=== PATIENT | male | born 1970 | race Caucasian/White ===

== ENCOUNTER 2020-05-05 12:13 | Emergency (ER) | payer OTHER ==
[~2020-05-05 12:13] MED LIST: AMARYL 2MG TABLE2 MG PO; BENADRYL 25MG C25 MG PO; BUDESONIDE0.5 MG/2 M NEB; COMBIVENT RESPIM4 GM INH; COREG6.25 MG PO; COZAAR100 MG PO; DEPO-TESTOS200 MG/ML IM; GLUCOPHAGE1000 MG PO; LEXAPRO10 MG PO; NORVASC10 MG PO; NOVOLIN 70100 UNIT/2 SQ; PEPCID20 MG PO; PREDNISONE10 MG PO; PREVACID30 MG PO; PROZAC40 MG PO; VITAMIN D31250 MCG PO
[2020-05-05 14:54] LABS: HEMOGLOBIN 15.4 gm/dl (14.0-17.5); RED BLOOD COUNT 4.56 M/UL (4.20-5.50); WHITE BLOOD COUNT 5.6 K/UL (4.5-11.0)
[2020-05-05 15:20] LABS: BUN/CREATININE RATIO 18 (0-10)
[2020-05-05] MEDS ORDERED: KEFLEX CAP 250250 MG PO (15:57)
[2020-05-05] MEDS ORDERED: IBUPROFEN600 MG PO (15:57)
== END 2020-05-05 17:15 | disposition home or self-care (01) ==
LOC: ER1 12:13
PROVIDERS: Internal Medicine
DX: L03.116 Cellulitis of left lower limb (principal); E11.9 Type 2 diabetes mellitus without complications; E66.9 Obesity, unspecified; I10 Essential (primary) hypertension; Z88.2 Allergy status to sulfonamides; Z79.4 Long term (current) use of insulin
CPT/HCPCS: 80053; 85025; 93971; 99284; J0690

== ENCOUNTER → 2020-05-10 | Outpatient (CLI) | payer OTHER ==
[~2020-05-10] MED LIST changes: +CARVEDILOL12.5 MG PO; +CEFTRIAXONE2 GM IV; +GABAPENTIN300 MG PO; +HYDROCODON-ACE1 EAC4 PO; +IBUPROFEN600 MG PO; +KEFLEX CAP 250250 MG PO; +NUVIGIL250 MG PO
== END ==
LOC: KOH-I 11:00
DX: B94.8 Sequelae of other specified infectious and parasitic diseases (principal); K76.0 Fatty (change of) liver, not elsewhere classified
CPT/HCPCS: 71250

== ENCOUNTER 2020-05-19 12:11 | Inpatient (IN) | payer OTHER ==
[~2020-05-19] VITALS: Ht 177.8 cm; Wt 158.3 kg
[~2020-05-19 12:11] MED LIST changes: -CARVEDILOL12.5 MG PO; -CEFTRIAXONE2 GM IV; -GABAPENTIN300 MG PO; -HYDROCODON-ACE1 EAC4 PO; -NUVIGIL250 MG PO
[2020-05-19 13:17] LABS: HEMOGLOBIN 14.6 gm/dl (14.0-17.5); RED BLOOD COUNT 4.32 M/UL (4.20-5.50); WHITE BLOOD COUNT 5.5 K/UL (4.5-11.0)
[2020-05-19 13:27] LABS: BUN/CREATININE RATIO 17 (0-10)
[2020-05-19] MEDS ORDERED: NUVIGIL250 MG PO (19:50)
[2020-05-22 05:08] LABS: HEMOGLOBIN 13.9 gm/dl (14.0-17.5); RED BLOOD COUNT 4.3 M/UL (4.20-5.50); WHITE BLOOD COUNT 5.4 K/UL (4.5-11.0)
[2020-05-22 05:18] LABS: BUN/CREATININE RATIO 19 (0-10)
[2020-05-23 05:50] LABS: HEMOGLOBIN 13.5 gm/dl (14.0-17.5); RED BLOOD COUNT 4.16 M/UL (4.20-5.50); WHITE BLOOD COUNT 4.9 K/UL (4.5-11.0)
[2020-05-23 06:02] LABS: BUN/CREATININE RATIO 17 (0-10)
[2020-05-23 11:17] LABS: ADENOVIRUS F 40/41 Not Detected (Negative); ASTROVIRUS Not Detected (Negative); CAMPYLOBACTER Not Detected (Negative); CLOSTRIDIUM DIFFICILE TOX A/B Not Detected (Negative); CRYPTOSPORIDIUM Not Detected (Negative); E.COLI 0157 Not Detected (Negative); ENTAMOEBA HISTOLYTICA Not Detected (Negative); ENTEROAGGREGATIVE E.COLI (EAEC Not Detected (Negative); ENTEROPATHOGENIC E.COLI (EPEC) Not Detected (Negative); ENTEROTOXIGENIC E.COLI (ETEC) Not Detected (Negative); GIARDIA LAMBLIA Not Detected (Negative); NOROVIRUS GI/GII Not Detected (Negative); PLESIOMONAS SHIGELLOIDES Not Detected (Negative); ROTOVIRUS A Not Detected (Negative); SALMONELLA Not Detected (Negative); SAPOVIRUS Not Detected (Negative); SHIG/ENTEROINVAS.ECOLI (EIEC) Not Detected (Negative); SHIGA-LIK TOX.PRO.E.COLI (STEC Not Detected (Negative); VIBRIO CHOLERAE Not Detected (Negative); YERSINIA ENTEROCOLITICA Not Detected (Negative)
[2020-05-23 13:27] LABS: VIBRIO DETECTED (Negative)
[2020-05-24 03:12] LABS: HEMOGLOBIN 14.2 gm/dl (14.0-17.5); RED BLOOD COUNT 4.3 M/UL (4.20-5.50); WHITE BLOOD COUNT 5.6 K/UL (4.5-11.0)
[2020-05-24 03:40] LABS: BUN/CREATININE RATIO 22 (0-10)
--- NOTE | 2020-05-24 15:45 | NUR ---
20G X 10CM MIDLINE PLACED IN THE LEFT BRACHIAL VEIN UTILIZING ULTRASOUND. ASPIRATES AND FLUSHES WELL. NO COMPLICATIONS.
[2020-05-24] MEDS ORDERED: CEFTRIAXONE2 GM IV (17:02)
[2020-05-24] MEDS ORDERED: CARVEDILOL12.5 MG PO (17:07)
[2020-05-24] MEDS ORDERED: HYDROCODON-ACE1 EAC4 PO (17:07)
[2020-05-24] MEDS ORDERED: GABAPENTIN300 MG PO (17:07)
--- NOTE | 2020-05-24 18:30 | NUR ---
REFUSED FLU SHOT/ OUT PT ORDER WAS FAXED TO THEM FOR IV ANTIBIOTIC ORDER , PT HAD MIDLINE PLACED IN RIGHT UPPER ARM FOR THER PER INFUSION NOTED
== END 2020-05-24 18:17 | disposition home or self-care (01) | DRG 603 ==
LOC: ER1 12:11 → M/S 14:58 → CDU 14:58 → M/S 17:33
PROVIDERS: Emergency Medicine; Family Medicine; Internal Medicine; ADMIT Internal Medicine
DX: L03.116 Cellulitis of left lower limb (principal); Z68.43 Body mass index [BMI] 50.0-59.9, adult; E66.01 Morbid (severe) obesity due to excess calories; G47.33 Obstructive sleep apnea (adult) (pediatric); I10 Essential (primary) hypertension; F41.9 Anxiety disorder, unspecified; M79.89 Other specified soft tissue disorders; E11.42 Type 2 diabetes mellitus with diabetic polyneuropathy; F32.9 Major depressive disorder, single episode, unspecified; I87.8 Other specified disorders of veins; E11.65 Type 2 diabetes mellitus with hyperglycemia; Z86.16 Personal history of COVID-19; Z79.4 Long term (current) use of insulin; Z87.891 Personal history of nicotine dependence; Z98.890 Other specified postprocedural states; Z88.2 Allergy status to sulfonamides
CPT/HCPCS: 36415; 80048; 80053; 80202; 82962; 85025; 85027; 86140; 87507; 93925; 94640; 94664; 94760; 96374; 96375; 96376; 99284; C1751; G0378; J0696; J1650; J2543; J3370; J7070; U0002

== ENCOUNTER → 2020-05-25 | Outpatient (CLI) | payer OTHER ==
[~2020-05-25] VITALS: Ht 177.8 cm; Wt 165.6 kg
[~2020-05-25] MED LIST changes: +CARVEDILOL12.5 MG PO; +CEFTRIAXONE2 GM IV; +GABAPENTIN300 MG PO; +HYDROCODON-ACE1 EAC4 PO; +NUVIGIL250 MG PO
== END ==
LOC: OPSV 08:59
DX: L03.116 Cellulitis of left lower limb (principal)
CPT/HCPCS: 96365; J0696

== ENCOUNTER → 2020-05-26 | Outpatient (CLI) | payer OTHER ==
[~2020-05-26] VITALS: Ht 177.8 cm; Wt 165.6 kg
== END ==
LOC: OPSV 08:00
DX: L03.116 Cellulitis of left lower limb (principal)
CPT/HCPCS: 96365; J0696

== ENCOUNTER → 2020-05-27 | Outpatient (CLI) | payer OTHER ==
[~2020-05-27] VITALS: Ht 177.8 cm; Wt 165.6 kg
== END ==
LOC: OPSV 08:00
DX: L03.116 Cellulitis of left lower limb (principal)
CPT/HCPCS: 96365; J0696

== ENCOUNTER → 2020-05-28 | Outpatient (CLI) | payer OTHER ==
[~2020-05-28] VITALS: Ht 177.8 cm; Wt 165.6 kg
== END ==
LOC: OPSV 08:00
DX: L03.116 Cellulitis of left lower limb (principal)
CPT/HCPCS: 96365; J0696

== ENCOUNTER → 2020-05-29 | Outpatient (CLI) | payer OTHER ==
[~2020-05-29] VITALS: Ht 177.8 cm; Wt 165.6 kg
== END ==
LOC: OPSV 08:00
DX: L03.116 Cellulitis of left lower limb (principal)
CPT/HCPCS: 96365; J0696

== ENCOUNTER → 2020-05-31 | Outpatient (CLI) | payer OTHER ==
[~2020-05-31] VITALS: Ht 177.8 cm; Wt 165.6 kg
== END ==
LOC: OPSV 08:00
DX: L03.116 Cellulitis of left lower limb (principal)
CPT/HCPCS: 96365; C1751; J0696

== ENCOUNTER → 2020-06-01 | Outpatient (CLI) | payer OTHER ==
[~2020-06-01] VITALS: Ht 177.8 cm; Wt 165.6 kg
== END ==
LOC: OPSV 08:00
DX: L03.116 Cellulitis of left lower limb (principal)
CPT/HCPCS: 96365; J0696

== ENCOUNTER → 2020-06-02 | Outpatient (CLI) | payer OTHER ==
[~2020-06-02] VITALS: Ht 177.8 cm; Wt 165.6 kg
== END ==
LOC: OPSV 08:00
DX: L03.116 Cellulitis of left lower limb (principal)
CPT/HCPCS: 96365; J0696; P9047

== ENCOUNTER → 2020-06-03 | Outpatient (CLI) | payer OTHER ==
[~2020-06-03] VITALS: Ht 177.8 cm; Wt 165.6 kg
[2020-06-03 10:02] LABS: HEMOGLOBIN 14.3 gm/dl (14.0-17.5); RED BLOOD COUNT 4.31 M/UL (4.20-5.50); WHITE BLOOD COUNT 6.5 K/UL (4.5-11.0)
[2020-06-03 10:31] LABS: BUN/CREATININE RATIO 25 (0-10)
[2020-06-04 08:14] LABS: ANTISTREPTOLYSIN O AB 87.3 IU/mL (0.0-200.0); RHEUMATOID ARTHRITIS FACTOR <10.0 IU/mL (0.0-13.9); VITAMIN D, 25-HYDROXY 28.4 ng/mL (30.0-100.0)
[2020-06-04 11:14] LABS: HBSAG SCREEN Negative (Negative); HEP A AB, IGM Negative (Negative); HEP B CORE AB, IGM Negative (Negative); HEP C VIRUS AB <0.1 (0.0-0.9)
== END ==
LOC: OPSV 08:00
PROVIDERS: Nurse Practitioner Family
DX: Z00.00 Encounter for general adult medical examination without abnormal findings (principal); E11.9 Type 2 diabetes mellitus without complications; M12.9 Arthropathy, unspecified; R53.83 Other fatigue; E78.5 Hyperlipidemia, unspecified; I10 Essential (primary) hypertension; D50.9 Iron deficiency anemia, unspecified; Z51.81 Encounter for therapeutic drug level monitoring; Z79.899 Other long term (current) drug therapy; M25.50 Pain in unspecified joint
CPT/HCPCS: 36415; 80053; 80061; 80074; 82150; 82607; 82728; 82746; 83036; 83540; 83550; 83690; 84443; 84550; 85027; 85652; 86038; 86060; 86140; 86431; 96365; J0696

== ENCOUNTER → 2020-06-04 | Outpatient (CLI) | payer OTHER ==
[~2020-06-04] VITALS: Ht 177.8 cm; Wt 165.6 kg
== END ==
LOC: OPSV 08:00
DX: L03.116 Cellulitis of left lower limb (principal)
CPT/HCPCS: 96365; C1751; J0696

== ENCOUNTER → 2020-06-05 | Outpatient (CLI) | payer OTHER ==
[~2020-06-05] VITALS: Ht 177.8 cm; Wt 165.6 kg
== END ==
LOC: OPSV 08:00
DX: L03.116 Cellulitis of left lower limb (principal)
CPT/HCPCS: 96365; J0696

== ENCOUNTER → 2020-06-06 | Outpatient (CLI) | payer OTHER ==
[~2020-06-06] VITALS: Ht 177.8 cm; Wt 165.6 kg
== END ==
LOC: OPSV 08:00
DX: L03.116 Cellulitis of left lower limb (principal)
CPT/HCPCS: 96365; J0696

== ENCOUNTER → 2020-06-07 | Outpatient (CLI) | payer OTHER ==
[~2020-06-07] VITALS: Ht 177.8 cm; Wt 165.6 kg
== END ==
LOC: OPSV 08:00
DX: L03.116 Cellulitis of left lower limb (principal)
CPT/HCPCS: 96365; J0696